=== PATIENT | female | born 1960 | race Caucasian/White ===

== ENCOUNTER → 2017-03-08 | Outpatient (CLI) | payer MEDICARE | END | disposition home or self-care (01) | LOC: LABWHC1 10:50 | PROVIDERS: ATTEND Internal Medicine | DX: Z53.9 Procedure and treatment not carried out, unspecified reason (principal) ==

== ENCOUNTER → 2017-03-20 | Outpatient (CLI) | payer MEDICARE ==
[2017-03-20 12:14] LABS: Basophils % (A) 1 %; CHCM 31.5; Eosinophils # (A) 0.1 k/uL (0-0.7); Eosinophils % (A) 2 %; HCT 45.9 % (34.0-46.0); HGB 14.2 gm/dL (11.4-16.0); Luc # (Auto) 0.09; Luc % (Auto) 1; Lymphocytes # (A) 1.7 k/uL (1.0-4.8); Lymphocytes % (A) 27 %; MCH 28.6 pg (25.0-35.0); MCHC 30.9 g/dL (31.0-37.0); MCV 92.6 fL (80.0-100.0); Mean Platelet Volume 6.3; Monocytes # (A) 0.4 k/uL (0-1.0); Monocytes % (A) 6 %; Neutrophils % (A) 63 %; RBC 4.95 m/uL (3.80-5.40); RDW 13.4 % (11.5-15.5); WBC 6.4 k/uL (3.8-10.6); WBC (Perox) 6.43
[2017-03-20 12:24] LABS: Appearance,Urine Clear (Clear); Bilirubin,Urine Negative (Negative); Glucose,Urine (UA) Negative (Negative); Ketones,Urine Negative (Negative); Leukocyte Esterase,Urine Negative (Negative); Nitrite,Urine Negative (Negative); Particle Count 913; Protein,Urine Negative (Negative); RBC,Urine 19 /hpf (0-5); Specific Gravity,Urine 1.013 (1.001-1.035); Squamous Epithelial Cell,Urine <1 /hpf (0-4); UA Billing (MACRO vs. MICRO) MICRO; Urobilinogen,Urine <2.0 mg/dL (<2.0); WBC,Urine 1 /hpf (0-5)
[2017-03-20 12:41] LABS: ALT 14 U/L (9-52); AST 18 U/L (14-36); Alkaline Phosphatase 85 U/L (38-126); Anion Gap 10 mmol/L; Blood Urea Nitrogen 16 mg/dL (7-17); Calcium 9.5 mg/dL (8.4-10.2); Carbon Dioxide 23 mmol/L (22-30); Chloride 108 mmol/L (98-107); Cholesterol 205 mg/dL (<200); Glucose 96 mg/dL (74-99); HDL Cholesterol 88 mg/dL (40-60); Magnesium 1.8 mg/dL (1.6-2.3); Non-African American GFR(MDRD) >60 (>60 ml/min/1.73 sqM); Potassium 4.3 mmol/L (3.5-5.1); Sodium 141 mmol/L (137-145); Total Bilirubin 0.4 mg/dL (0.2-1.3); Total Protein 7.4 g/dL (6.3-8.2)
[2017-03-20 14:14] LABS: Hemoglobin A1C 5.5 % (4.2-6.1)
--- NOTE | 2017-03-20 14:46 | XR ---
Left femur and bilateral hips HISTORY: Pain 2 views of the left femur correlated to bilateral hips with 2 views of each hip from same date Osteoarthritic changes noted within the left knee. Marginal spurring and joint space loss also noted within the bilateral hips. Bone mineralization is maintained. Possible old avulsion injury seen at th e lesser trochanter of the left is well-corticated and not felt likely to be acute. IMPRESSION: Osteoarthritis.
--- NOTE | 2017-03-20 14:47 | XR ---
Sacroiliac joints HISTORY: Bilateral pain 2 views of each sacroiliac joints submitted. There is no ankylosis, bone erosion, or significant sclerosis. Osteophytic change noted incidentally within the hips. Degenerative disc change at the lower lumbar spine. Indeterminate calcifications wit hin the pelvis. IMPRESSION: Osteoarthritis bilateral hips, degenerative disc disease.
== END | disposition home or self-care (01) ==
LOC: LABWHC1 11:08
PROVIDERS: ATTEND Internal Medicine
DX: M16.0 Bilateral primary osteoarthritis of hip (principal); E53.8 Deficiency of other specified B group vitamins; D64.9 Anemia, unspecified; E11.9 Type 2 diabetes mellitus without complications; N18.3 Chronic kidney disease, stage 3 (moderate); E05.90 Thyrotoxicosis, unspecified without thyrotoxic crisis or storm; E78.5 Hyperlipidemia, unspecified; N20.0 Calculus of kidney; N39.0 Urinary tract infection, site not specified
CPT/HCPCS: 36415; 72202; 73521; 80053; 80061; 80074; 81001; 82306; 82607; 82746; 83036; 83735; 83970; 84443; 85025

== ENCOUNTER → 2017-06-09 | Outpatient (CLI) | payer MEDICARE ==
[2017-06-09 13:48] LABS: Appearance,Urine Clear (Clear); Bilirubin,Urine Negative (Negative); Blood,Urine Small (Negative); Color,Urine Yellow; Glucose,Urine (UA) Negative (Negative); Ketones,Urine Trace (Negative); Leukocyte Esterase,Urine Negative (Negative); Mucus,Urine Occasional /hpf; Nitrite,Urine Negative (Negative); Protein,Urine Negative (Negative); RBC,Urine 6 /hpf (0-5); Specific Gravity,Urine 1.015 (1.001-1.035); Urobilinogen,Urine <2.0 mg/dL (<2.0); WBC,Urine 2 /hpf (0-5)
--- NOTE | 2017-06-10 13:58 | XR ---
EXAMINATION TYPE: XR KUB DATE OF EXAM: 06/09/2017 1:06 PM CLINICAL HISTORY: Right flank pain with history of nephrolithiasis TECHNIQUE: Single supine KUB image of the abdomen is obtained. COMPARISON: None. FINDINGS: Punctate 1 to 2 mm right upper pole and right lower pole renal calculus is seen as well as multitude of left renal calculi with the largest measuring 8 mm on the left and at least 7 other left renal calculi. Dystrophic calcification within the pelvis likely relates to degenerative uterine fib roid. Moderate multilevel degenerative changes of the visualized thoracolumbar and lumbosacral spine are seen as well as of the femoral acetabular joints. IMPRESSION: Bilateral nephrolithiasis, left greater than right.
== END | disposition home or self-care (01) ==
LOC: RADXRMAIN 11:16
PROVIDERS: ATTEND Internal Medicine
DX: N20.0 Calculus of kidney (principal)
CPT/HCPCS: 74018; 81001

== ENCOUNTER → 2017-07-03 | Outpatient (CLI) | payer MEDICARE ==
--- NOTE | 2017-07-03 15:10 | CT ---
EXAMINATION TYPE: CT abdomen pelvis wo con DATE OF EXAM: 07/03/2017 COMPARISON: NONE HISTORY: Calculus of kidney CT DLP: 270.40 mGycm Automated exposure control for dose reduction was used. TECHNIQUE: Helical acquisition of images was performed from the lung bases through the pelvis. FINDINGS: LUNG BASES: No significant abnormality is appreciated. LIVER/GB: Unremarkable unenhanced morphology. No evidence of cholelithiasis. PANCREAS: No ductal dilatation. SPLEEN: No splenomegaly. ADRENALS: No thickening or nodularity. KIDNEYS: There are at least 11 left-sided renal calculi with the largest in the lower pole measuring 6 mm. These are all nonobstructive with no evidence of left-sided hydronephrosis. Within the right ki dney there are 3 renal calculi with the largest measuring 2 mm in the lower pole. These are also nono bstructed with no evidence of hydronephrosis. FREE AIR: No free air is visualized RETROPERITONEAL ADENOPATHY: Evaluation is somewhat limited given lack of intravenous contrast, howev er no greater than 1 cm short axis lymph nodes are seen within the abdomen or pelvis. REPRODUCTIVE ORGANS: No significant abnormality is seen URINARY BLADDER: Urinary bladder is incompletely evaluated as it is incompletely distended and nonco ntrast filled. No gross abnormality is identified. PELVIC ADENOPATHY: None visualized. OSSEOUS STRUCTURES: Moderate multilevel degenerative changes of the visualized thoracal lumbar spine are noted. There is a grade 1 retrolisthesis of L1 on L2 and grade 1 anterolisthesis of L4 on L5. Th ere is a mild S-shaped scoliotic curvature of the visualized thoracal lumbar spine and moderate bilat eral femoral acetabular arthropathy. BOWEL: Moderate amount retained colonic stool without evidence of bowel obstruction. OTHER: Moderate calcific atheromatous changes are seen of the abdominal aorta and its branches. IMPRESSION: NUMEROUS BILATERAL NONOBSTRUCTING RENAL CALCULI (AT LEAST 11 ON THE LEFT AND 3 ON THE RIGHT) MEASURIN G UP TO 6 MM ON THE LEFT AND 2 MM ON THE RIGHT. NO URETERAL CALCULI OR URINARY BLADDER CALCULI ARE ID ENTIFIED.
== END | disposition home or self-care (01) ==
LOC: RADCTMAIN 14:38
PROVIDERS: ATTEND Urology
DX: N20.0 Calculus of kidney (principal)
CPT/HCPCS: 74176

== ENCOUNTER → 2017-10-06 | Outpatient (CLI) | payer MEDICARE ==
[2017-10-06 17:26] LABS: HIV AB P24 Non-Reactive (Non-Reactive); HIV P24 AG Non-Reactive (Non-Reactive)
== END | disposition home or self-care (01) ==
LOC: LABWHC1 09:17
PROVIDERS: ATTEND Ophthalmology
DX: H44.009 Unspecified purulent endophthalmitis, unspecified eye (principal)
CPT/HCPCS: 36415; 86780; 87390

== ENCOUNTER → 2017-10-15 | Outpatient (CLI) | payer MEDICARE ==
[2017-10-15 14:14] LABS: Albumin 4.6 g/dL (3.5-5.0); Calcium 10.3 mg/dL (8.4-10.2); Magnesium 1.8 mg/dL (1.6-2.3); Phosphorus 4.7 mg/dL (2.5-4.5); Potassium 5.2 mmol/L (3.5-5.1); Total Bilirubin 0.3 mg/dL (0.2-1.3); Total Protein 7.6 g/dL (6.3-8.2); Uric Acid 5.5 mg/dL (3.7-7.4)
[2017-10-15 18:48] LABS: Vitamin D 25 Hydroxy 15.7 ng/mL (30.0-100.0)
[2017-10-15 19:00] LABS: Parathyroid Hormone Intact 32.5 pg/mL (14.0-72.0)
== END | disposition home or self-care (01) ==
LOC: LABWHC1 13:27
PROVIDERS: ATTEND Internal Medicine
DX: E21.3 Hyperparathyroidism, unspecified (principal); N20.0 Calculus of kidney; E87.8 Other disorders of electrolyte and fluid balance, not elsewhere classified; N18.3 Chronic kidney disease, stage 3 (moderate); E55.9 Vitamin D deficiency, unspecified
CPT/HCPCS: 36415; 80053; 82306; 83735; 83970; 84100; 84550

== ENCOUNTER → 2017-10-24 | Outpatient (CLI) | payer MEDICARE ==
[2017-10-24 12:34] LABS: Ionized Calcium 5.6 mg/dL (4.5-5.3)
[2017-10-24 12:40] LABS: Anion Gap 12 mmol/L; Blood Urea Nitrogen 27 mg/dL (7-17); Calcium 9.9 mg/dL (8.4-10.2); Carbon Dioxide 23 mmol/L (22-30); Chloride 106 mmol/L (98-107); Glucose 94 mg/dL (74-99); Magnesium 1.9 mg/dL (1.6-2.3); Phosphorus 3.7 mg/dL (2.5-4.5); Potassium 4.6 mmol/L (3.5-5.1); Sodium 141 mmol/L (137-145)
== END | disposition home or self-care (01) ==
LOC: LABWHC1 11:39
PROVIDERS: ATTEND Internal Medicine
DX: E87.8 Other disorders of electrolyte and fluid balance, not elsewhere classified (principal); E83.51 Hypocalcemia; E87.5 Hyperkalemia
CPT/HCPCS: 36415; 80048; 82330; 83735; 84100

== ENCOUNTER → 2019-05-02 | Outpatient (CLI) | payer MEDICARE ==
--- NOTE | 2019-05-02 09:37 | US ---
EXAMINATION TYPE: US duplex aorta DATE OF EXAM: 05/02/2019 COMPARISON: CT CLINICAL HISTORY: I71.4; pulsing aorta; Patient HT 5'4, WT 110lbs; calcifications noted on prior CT EXAM MEASUREMENTS: Abdominal Aorta: Proximal: 2.0cm Transverse Mid: 2.0cm A/P Distal: 1.7cm Transverse Bifurcation: 1.25cm Right JOSE M Transverse; 1.06cm Left JOSE M Transverse Intimal wall changes are noted mid and distal aorta. IMPRESSION: No sonographic evidence of abdominal aortic aneurysm. Atherosclerosis noted.
[2019-05-02 09:42] LABS: Basophils # (A) 0.1 k/uL (0-0.2); Basophils % (A) 1 %; Eosinophils # (A) 0.1 k/uL (0-0.7); Eosinophils % (A) 1 %; HCT 42.3 % (34.0-46.0); HGB 13.2 gm/dL (11.4-16.0); Lymphocytes # (A) 1.7 k/uL (1.0-4.8); Lymphocytes % (A) 17 %; MCH 27.7 pg (25.0-35.0); MCHC 31.1 g/dL (31.0-37.0); MCV 88.9 fL (80.0-100.0); Monocytes # (A) 0.4 k/uL (0-1.0); Monocytes % (A) 5 %; Neutrophils # (A) 7.4 k/uL (1.3-7.7); Neutrophils % (A) 75 %; Platelet Count 535 k/uL (150-450); RBC 4.76 m/uL (3.80-5.40); RDW 14.4 % (11.5-15.5); WBC 9.8 k/uL (3.8-10.6)
[2019-05-02 09:56] LABS: ALT <6 U/L (9-52); AST 17 U/L (14-36); African American GFR (CKD) >90 (>60 ml/min/1.73 sqM); Albumin 4.2 g/dL (3.5-5.0); Alkaline Phosphatase 88 U/L (38-126); Anion Gap 6 mmol/L; Blood Urea Nitrogen 17 mg/dL (7-17); Calcium 9.9 mg/dL (8.4-10.2); Carbon Dioxide 30 mmol/L (22-30); Chloride 106 mmol/L (98-107); Cholesterol 197 mg/dL (<200); Creatine Kinase 24 U/L (30-135); Glucose 113 mg/dL (74-99); HDL Cholesterol 71 mg/dL (40-60); LDL Cholesterol,Calculated 101 mg/dL (0-99); Non-African American GFR(CKD) 88 (>60 ml/min/1.73 sqM); Phosphorus 3.6 mg/dL (2.5-4.5); Potassium 4.1 mmol/L (3.5-5.1); Sodium 142 mmol/L (137-145); Total Bilirubin 0.5 mg/dL (0.2-1.3); Total Protein 7.7 g/dL (6.3-8.2); Triglycerides 126 mg/dL (<150); Uric Acid 4.4 mg/dL (3.7-7.4)
[2019-05-02 10:08] LABS: T4, Free (Free Thyroxine) 1.21 ng/dL (0.78-2.19)
--- NOTE | 2019-05-02 10:32 | XR ---
EXAMINATION TYPE: XR shoulder complete RT DATE OF EXAM: 05/02/2019 COMPARISON: NONE HISTORY: Pain TECHNIQUE: Three views are submitted. FINDINGS: The osseous structures are intact. There is no acute fracture or dislocation. The AC joint is maint ained. There is hypertrophic change of the acromion. Chronic appearing deformity of the right fourth rib. IMPRESSION: 1. Small spur extending from the acromion can be seen with chronic rotator cuff disease correlate cli nically.
--- NOTE | 2019-05-02 10:37 | XR ---
EXAMINATION TYPE: XR chest 2V DATE OF EXAM: 05/02/2019 COMPARISON: NONE TECHNIQUE: PA and lateral views submitted. HISTORY: Pain FINDINGS: The lungs are clear and there is no pneumothorax, pleural effusion, or focal pneumonia. Postsurgica l change overlying the cervical spine. Arthropathy of the shoulders greater on the right. Hypertrophi c and degenerative changes spine with scoliotic curvature. Hyperinflation suggests COPD. IMPRESSION: 1. No acute process. Hyperinflation suggests COPD.
[2019-05-02 10:44] LABS: Amorphous Sediment,Urine Moderate /hpf; Appearance,Urine Turbid (Clear); Bacteria,Urine Occasional /hpf; Bilirubin,Urine Negative (Negative); Blood,Urine Negative (Negative); C Reactive Protein <5.0 mg/L (<10.0); Color,Urine Yellow; Glucose,Urine (UA) Negative (Negative); Hyaline Casts,Urine 4 /lpf (0-2); Ketones,Urine Negative (Negative); Leukocyte Esterase,Urine Moderate (Negative); Mucus,Urine Rare /hpf; Nitrite,Urine Positive (Negative); PH, Urine 6.5 (5.0-8.0); Protein,Urine Negative (Negative); RBC,Urine 6 /hpf (0-5); Specific Gravity,Urine 1.013 (1.001-1.035); Squamous Epithelial Cell,Urine <1 /hpf (0-4); Urobilinogen,Urine <2.0 mg/dL (<2.0); WBC,Urine 20 /hpf (0-5)
[2019-05-02 11:28] LABS: Erythrocyte Sedimentation Rate 28 mm/hr (0-20)
--- NOTE | 2019-05-02 11:31 | XR ---
EXAMINATION TYPE: XR Hip Complete LT DATE OF EXAM: 05/02/2019 COMPARISON: NONE HISTORY: Pain TECHNIQUE: 2 views submitted FINDINGS: There is no evidence of erosive change or acute fracture. There is arthropathy of the hip joint with hypertrophic change of the acetabulum. Calcification the pelvis noted. Spurring along the femoral hea d noted. IMPRESSION: 1. Moderate to severe arthropathy of the hip. Correlate for osteoarthritis.
[2019-05-02 19:39] LABS: Hemoglobin A1C 5.8 % (4.0-6.0)
== END | disposition home or self-care (01) ==
LOC: RADUSWWP 08:43
PROVIDERS: ATTEND Internal Medicine
DX: I70.0 Atherosclerosis of aorta (principal); M75.81 Other shoulder lesions, right shoulder; J98.8 Other specified respiratory disorders; M12.852 Other specific arthropathies, not elsewhere classified, left hip; I71.4 Abdominal aortic aneurysm, without rupture; E11.22 Type 2 diabetes mellitus with diabetic chronic kidney disease; N18.3 Chronic kidney disease, stage 3 (moderate); D63.1 Anemia in chronic kidney disease; E87.8 Other disorders of electrolyte and fluid balance, not elsewhere classified; E78.5 Hyperlipidemia, unspecified; E21.3 Hyperparathyroidism, unspecified; E05.90 Thyrotoxicosis, unspecified without thyrotoxic crisis or storm; N20.0 Calculus of kidney; M81.0 Age-related osteoporosis without current pathological fracture; J06.9 Acute upper respiratory infection, unspecified
CPT/HCPCS: 36415; 71046; 73502; 80053; 80061; 81001; 82550; 83036; 83735; 83970; 84100; 84439; 84443; 84550; 85025; 85652; 86140; 93979

== ENCOUNTER 2022-09-08 18:54 | Emergency (ER) | payer MEDICARE ==
[2022-09-08 19:04] VITALS: TEMP 98.2
--- NOTE | 2022-09-08 20:03 | ED ---
SOB HPI - General Chief Complaint: Shortness of Breath Stated Complaint: CANT BREATHE Time Seen by Provider: 09/08/22 19:00 Source: patient Mode of arrival: wheelchair Limitations: no limitations - History of Present Illness Initial Comments: 62-year-old female past medical history of Parkinson's who presents to the emergency room reporting shortness of breath, chest pressure and palpitations. She also reports to worsening tremors and speech difficulties. Symptoms all started today. States she is under considerable amount of stress while trying t o take care of her elderly mother. She does have some speech deficits due to her Parkinson's however states that today it seems harder to find her words. She denies fevers, chills or cough. No nausea or vomiting. No sick contacts with similar symptoms. No history of coronary disease. Does admit to history of pots. It still mild headache. No visual changes. No recent trauma. No abdominal pain. No changes in her bowel or bladder habits. No other alleviating, precipitating or modifying factors - Related Data Home Medications Medication Instructions Recorded Confirmed Sinemet (Uknown Strength) 1 dose PO DIRECTED 09/08/22 09/08/22 Allergies Allergy/AdvReac Type Severity Reaction Status Date / Time No Known Allergies Allergy Verified 09/08/22 21:43 Review of Systems ROS Statement: Those systems with pertinent positive or pertinent negative responses have been documented in the HPI. ROS Other: All systems not noted in ROS Statement are negative. Past Medical History Additional Past Medical History / Comment(s): parkinsons, MARTI History of Any Multi-Drug Resistant Organisms: None Reported Past Surgical History: Appendectomy Additional Past Surgical History / Comment(s): cervical ,lumbar spine, crainotomy Past Psychological History: No Psychological Hx Reported Smoking Status: Never smoker Past Alcohol Use History: None Reported Past Drug Use History: None Reported General Exam Limitations: no limitations General appearance: alert, in no apparent distress Head exam: Present: atraumatic, normocephalic, normal inspection Eye exam: Present: normal appearance, PERRL, EOMI. Absent: scleral icterus, conjunctival injection, periorbital swelling ENT exam: Present: normal exam, mucous membranes moist Neck exam: Present: normal inspection. Absent: tenderness, meningismus, lymphadenopathy Respiratory exam: Present: normal lung sounds bilaterally. Absent: respiratory distress, wheezes, rales, rhonchi, stridor Cardiovascular Exam: Present: regular rate, normal rhythm, normal heart sounds. Absent: systolic murmur, diastolic murmur, rubs, gallop, clicks GI/Abdominal exam: Present: soft, normal bowel sounds. Absent: distended, tenderness, guarding, rebound, rigid Extremities exam: Present: normal inspection, full ROM, normal capillary refill. Absent: tenderness, pedal edema, joint swelling, calf tenderness Back exam: Present: normal inspection Neurological exam: Present: alert, oriented X3, CN II-XII intact Psychiatric exam: Present: normal affect, normal mood Skin exam: Present: warm, dry, intact, normal color. Absent: rash Course Vital Signs 09/08/22 09/08/22 18:59 21:13 Temperature 98.2 F Pulse Rate 114 H 100 Respiratory 24 18 Rate Blood Pressure 147/78 121/81 O2 Sat by Pulse 99 100 Oximetry Medical Decision Making - Medical Decision Making Was pt. sent in by a medical professional or institution (, PA, ELEMENTARY ASSISTANT TEACHER, urgent care, hospital, or alf...) When possible be specific @ -No Did you speak to anyone other than the patient for history (EMS, parent, family, police, friend...)? What history was obtained from this source @ -No Did you review nursing and triage notes (agree or disagree)? Why? @ -I reviewed and agree with nursing and triage notes Were old charts reviewed (outside hosp., previous admission, EMS record, old EKG, old radiological studies, urgent care reports/EKG's, alf records)? Report findings @ -No old charts were reviewed Differential Diagnosis (chest pain, altered mental status, abdominal pain women, abdominal pain men, vaginal bleeding, weakness, fever, dyspnea, syncope, headache, dizziness, GI bleed, back pain, seizure, CVA, palpatations, mental health, musculoskeletal)? @ -acs, pleurisy, chest wall pain, nstemi, pe, copd, anxiety EKG interpreted by me (3pts min.). @ -yes X-rays interpreted by me (1pt min.). @ -yes CT interpreted by me (1pt min.). @ yes U/S interpreted by me (1pt. min.). @ -None done What testing was considered but not performed or refused? (CT, X-rays, U/S, labs)? Why? @ -recommended admission but patient refused What meds were considered but not given or refused? Why? @ -None Did you discuss the management of the patient with other professionals (professionals i.e. , PA, ELEMENTARY ASSISTANT TEACHER, lab, RT, psych nurse, director social service, concrete paving machine operator, teacher, correction officer penitentiary, family preservation caseworker)? Give summary @ -No Was smoking cessation discussed for >3mins.? @ -No Was critical care preformed (if so, how long)? @ -No Were there social determinants of health that impacted care today? How? (Homelessness, low income, unemployed, alcoholism, drug addiction, transportation, low edu. Level, literacy, decrease access to med. care, halfway, rehab)? @ -No Was there de-escalation of care discussed even if they declined (Discuss DNR or withdrawal of care, Hospice)? DNR status @ -No What co-morbidities impacted this encounter? (DM, HTN, Smoking, COPD, CAD, Cancer, CVA, ARF, Chemo, Hep., AIDS, mental health diagnosis, sleep apnea, mo rbid obesity)? @ -parkinsons, marti Was patient admitted / discharged? Hospital course, mention meds given and route, prescriptions, significant lab abnormalities, going to OR and other pertinent info. @ -Upon arrival patient was placed into trauma 2. Thorough history and physical exam was performed. IV access is established and laboratory studies are conducted. D-dimer is negative. Troponin negative. Chest x-ray demonstrates no acute cardiopulmonary process. CT of the brain is low CT angiography is performed as patient does disclose that she has a history of aneurysm with repair. CT brain demonstrates no acute intracranial process. Results are discussed with the patient. Recommended admission however patient is adamant that she needs to go home at this time to take care of her mother. Did discuss risks of waiting for which the patient understood. Patient states that she will call her neurologist in the morning to make an appointment. She'll return for any new or worsening symptoms. Patient is discharged with a guarded prognosis Undiagnosed new problem with uncertain prognosis? @ -yes Drug Therapy requiring intensive monitoring for toxicity (Heparin, Nitro, Insulin, Cardizem)? @ -No Were any procedures done? @ -No Diagnosis/symptom? @ -acute resp insuff, acute aphasia Acute, or Chronic, or Acute on Chronic? @ -acute Uncomplicated (without systemic symptoms) or Complicated (systemic symptoms)? @ -complicated Side effects of treatment? @ -No Exacerbation, Progression, or Severe Exacerbation? @ -No Poses a threat to life or bodily function? How? (Chest pain, USA, MD, pneumonia, PE, COPD, DKA, ARF, appy, cholecystitis, CVA, Diverticulitis, Homicidal, Suicidal, threat to staff... and all critical care pts) @ -No - Lab Data Result diagrams: 09/08/22 20:04 09/08/22 20:04 Lab Results 09/08/22 09/08/22 09/08/22 Range/Units 20:04 20:04 20:04 WBC 7.4 (3.8-10.6) k/uL RBC 5.23 (3.80-5.40) m/uL Hgb 15.6 (11.4-16.0) gm/dL Hct 46.8 H (34.0-46.0) % MCV 89.4 (80.0-100.0) fL MCH 29.9 (25.0-35.0) pg MCHC 33.4 (31.0-37.0) g/dL RDW 12.3 (11.5-15.5) % Plt Count 330 (150-450) k/uL MPV 7.2 Neutrophils % 77 % Lymphocytes % 16 % Monocytes % 6 % Eosinophils % 1 % Basophils % 0 % Neutrophils # 5.7 (1.3-7.7) k/uL Lymphocytes # 1.1 (1.0-4.8) k/uL Monocytes # 0.4 (0-1.0) k/uL Eosinophils # 0.1 (0-0.7) k/uL Basophils # 0.0 (0-0.2) k/uL PT 9.9 (9.0-12.0) sec INR 0.9 (<1.2) APTT 23.6 (22.0-30.0) sec D-Dimer (<0.60) mg/L FEU Sodium 136 L (137-145) mmol/L Potassium 4.5 (3.5-5.1) mmol/L Chloride 102 (98-107) mmol/L Carbon Dioxide 24 (22-30) mmol/L Anion Gap 10 mmol/L BUN 23 H (7-17) mg/dL Creatinine 0.86 (0.52-1.04) mg/dL Est GFR (CKD-EPI)AfAm 84 (>60 ml/min/1.73 sqM) Est GFR (CKD-EPI)NonAf 73 (>60 ml/min/1.73 sqM) Glucose 101 H (74-99) mg/dL Plasma Lactic Acid Binh (0.7-2.0) mmol/L Calcium 10.8 H (8.4-10.2) mg/dL Magnesium 2.1 (1.6-2.3) mg/dL Total Bilirubin 0.8 (0.2-1.3) mg/dL AST 21 (14-36) U/L ALT 8 (4-34) U/L Alkaline Phosphatase 102 (38-126) U/L Troponin I (0.000-0.034) ng/mL NT-Pro-B Natriuret Pep pg/mL Total Protein 9.1 H (6.3-8.2) g/dL Albumin 5.1 H (3.5-5.0) g/dL TSH (0.465-4.680) mIU/L 09/08/22 09/08/22 09/08/22 Range/Units 20:04 20:04 20:04 WBC (3.8-10.6) k/uL RBC (3.80-5.40) m/uL Hgb (11.4-16.0) gm/dL Hct (34.0-46.0) % MCV (80.0-100.0) fL MCH (25.0-35.0) pg MCHC (31.0-37.0) g/dL RDW (11.5-15.5) % Plt Count (150-450) k/uL MPV Neutrophils % % Lymphocytes % % Monocytes % % Eosinophils % % Basophils % % Neutrophils # (1.3-7.7) k/uL Lymphocytes # (1.0-4.8) k/uL Monocytes # (0-1.0) k/uL Eosinophils # (0-0.7) k/uL Basophils # (0-0.2) k/uL PT (9.0-12.0) sec INR (<1.2) APTT (22.0-30.0) sec D-Dimer (<0.60) mg/L FEU Sodium (137-145) mmol/L Potassium (3.5-5.1) mmol/L Chloride (98-107) mmol/L Carbon Dioxide (22-30) mmol/L Anion Gap mmol/L BUN (7-17) mg/dL Creatinine (0.52-1.04) mg/dL Est GFR (CKD-EPI)AfAm (>60 ml/min/1.73 sqM) Est GFR (CKD-EPI)NonAf (>60 ml/min/1.73 sqM) Glucose (74-99) mg/dL Plasma Lactic Acid Binh 1.4 (0.7-2.0) mmol/L Calcium (8.4-10.2) mg/dL Magnesium (1.6-2.3) mg/dL Total Bilirubin (0.2-1.3) mg/dL AST (14-36) U/L ALT (4-34) U/L Alkaline Phosphatase (38-126) U/L Troponin I <0.012 (0.000-0.034) ng/mL NT-Pro-B Natriuret Pep 18 pg/mL Total Protein (6.3-8.2) g/dL Albumin (3.5-5.0) g/dL TSH (0.465-4.680) mIU/L 09/08/22 09/08/22 Range/Units 21:25 21:25 WBC (3.8-10.6) k/uL RBC (3.80-5.40) m/uL Hgb (11.4-16.0) gm/dL Hct (34.0-46.0) % MCV (80.0-100.0) fL MCH (25.0-35.0) pg MCHC (31.0-37.0) g/dL RDW (11.5-15.5) % Plt Count (150-450) k/uL MPV Neutrophils % % Lymphocytes % % Monocytes % % Eosinophils % % Basophils % % Neutrophils # (1.3-7.7) k/uL Lymphocytes # (1.0-4.8) k/uL Monocytes # (0-1.0) k/uL Eosinophils # (0-0.7) k/uL Basophils # (0-0.2) k/uL PT (9.0-12.0) sec INR (<1.2) APTT (22.0-30.0) sec D-Dimer 0.25 (<0.60) mg/L FEU Sodium (137-145) mmol/L Potassium (3.5-5.1) mmol/L Chloride (98-107) mmol/L Carbon Dioxide (22-30) mmol/L Anion Gap mmol/L BUN (7-17) mg/dL Creatinine (0.52-1.04) mg/dL Est GFR (CKD-EPI)AfAm (>60 ml/min/1.73 sqM) Est GFR (CKD-EPI)NonAf (>60 ml/min/1.73 sqM) Glucose (74-99) mg/dL Plasma Lactic Acid Binh (0.7-2.0) mmol/L Calcium (8.4-10.2) mg/dL Magnesium (1.6-2.3) mg/dL Total Bilirubin (0.2-1.3) mg/dL AST (14-36) U/L ALT (4-34) U/L Alkaline Phosphatase (38-126) U/L Troponin I (0.000-0.034) ng/mL NT-Pro-B Natriuret Pep pg/mL Total Protein (6.3-8.2) g/dL Albumin (3.5-5.0) g/dL TSH 0.710 (0.465-4.680) mIU/L - EKG Data EKG Comments: EKG demonstrates sinus tachycardia with a rate of 108. UT interval 128. QRS 77. QTC is 365. No acute ST segment elevations or depressions Disposition Clinical Impression: Acute respiratory insufficiency, Aphasia Disposition: HOME SELF-CARE Condition: Stable Instructions (If sedation given, give patient instructions): Shortness of Breath (ED) Additional Instructions: Recommended admission for further workup. Please follow-up with her primary care doctor in 2-4 days for further management of your symptoms return should she be agreeable to stay. Is patient prescribed a controlled substance at d/c from ED?: No Referrals: Inocente Macedo MD [Primary Care Provider] - 1-2 days Sandra Gibbs MD [REFERRING] - 1-2 days Time of Disposition: 23:30
[2022-09-08 20:40] LABS: Basophils % (A) 0 %; Eosinophils # (A) 0.1 k/uL (0-0.7); Eosinophils % (A) 1 %; HCT 46.8 % (34.0-46.0); HGB 15.6 gm/dL (11.4-16.0); Lymphocytes # (A) 1.1 k/uL (1.0-4.8); Lymphocytes % (A) 16 %; MCH 29.9 pg (25.0-35.0); MCHC 33.4 g/dL (31.0-37.0); MCV 89.4 fL (80.0-100.0); Mean Platelet Volume 7.2; Monocytes # (A) 0.4 k/uL (0-1.0); Monocytes % (A) 6 %; Neutrophils # (A) 5.7 k/uL (1.3-7.7); Neutrophils % (A) 77 %; Platelet Count 330 k/uL (150-450); RBC 5.23 m/uL (3.80-5.40); RDW 12.3 % (11.5-15.5); WBC 7.4 k/uL (3.8-10.6)
[2022-09-08 20:51] LABS: Albumin 5.1 g/dL (3.5-5.0); Calcium 10.8 mg/dL (8.4-10.2); Magnesium 2.1 mg/dL (1.6-2.3); Potassium 4.5 mmol/L (3.5-5.1); Total Bilirubin 0.8 mg/dL (0.2-1.3); Total Protein 9.1 g/dL (6.3-8.2)
[2022-09-08 20:55] LABS: INR 0.9 (<1.2); Partial Thromboplastin Time 23.6 sec (22.0-30.0); Prothrombin Time 9.9 sec (9.0-12.0)
[2022-09-08] MEDS ORDERED: CARBIDOPA-LEVODOPA ER 50-200MG 1 EACH TABLET.ER PO STA (20:58)
--- NOTE | 2022-09-08 20:58 | XR ---
EXAMINATION TYPE: XR chest 2V DATE OF EXAM: 09/08/2022 8:17 PM COMPARISON: Chest radiographs from 05/02/2019. TECHNIQUE: XR chest 2V Frontal and lateral views of the chest. CLINICAL INDICATION:Female, 62 years old with history of difficulty breathing; FINDINGS: Lungs/Pleura: There is no evidence of pleural effusion, focal consolidation, or pneumothorax. Pulmonary vascularity: Unremarkable. Heart/mediastinum: Cardiomediastinal silhouette is unremarkable. Musculoskeletal: No acute osseous pathology. There is fixation hardware in the lower cervical spine. IMPRESSION: No acute cardiopulmonary disease/process.
[2022-09-08 21:16] VITALS: BP 121/81; PULSE 100; RESP 18
--- NOTE | 2022-09-08 22:58 | CT ---
EXAMINATION TYPE: CT brain wo con CT DLP: Combined DLP of 1482.5 mGycm, Automated exposure control for dose reduction was used. DATE OF EXAM: 09/08/2022 10:47 PM COMPARISON: MRA brain 10/04/2009. CLINICAL INDICATION:Female, 62 years old with history of aphasia, Parkinsons. Increased tremors. TECHNIQUE: Brain: Axial CT images of the brain were obtained with coronal and sagittal reformats created and rev iewed. Contrast used: None. Oral contrast used: None. FINDINGS: Brain: Extra-axial spaces: No abnormal extra-axial fluid collections. Ventricular system: Within normal limits Cerebral parenchyma: No acute intraparenchymal hemorrhage or mass effect. The pacheco-white junction is well differentiated. Right middle cranial fossa surgical clip. Cerebellum: Unremarkable. Mass effect: No evidence of midline shift. Intracranial vasculature: unremarkable Soft tissues: Normal. Calvarium/osseous structures: No depressed skull fracture. Post surgical changes in the right calvari um. Paranasal sinuses and mastoid air cells: Mild scattered paranasal sinus disease. Visualized orbits: Orbital contents are intact. IMPRESSION: No acute intracranial process.
--- NOTE | 2022-09-08 23:07 | CT ---
EXAMINATION TYPE: CT angio head neck CT DLP: 1482.5 mGycm, Automated exposure control for dose reduction was used. DATE OF EXAM: 09/08/2022 10:47 PM COMPARISON: CT brain same day. CLINICAL INDICATION:Female, 62 years old with history of aphasia; PHH, Parkinson's. Increased tremors . TECHNIQUE: Axially acquired helical CT angiogram of the head and neck was obtained with contrast. Axi al images are supplemented with 3D reconstructions [facility] criteria used. Contrast used:65cc mL of Isovue 370 with IV Contrast, Oral contrast used: None. FINDINGS: CTA HEAD: No evidence of acute intracranial hemorrhage, mass effect, or midline shift. The ventricles, sulci, a nd cisterns are unremarkable. The visualized portions of the internal carotid arteries, middle cerebral arteries, anterior cerebral arteries, and posterior cerebral arteries are patent. origins of the posterior cerebral arteri es bilaterally. The basilar and vertebral arteries are patent. Diminutive appearance of the intracranial vertebral sy stem and vertebral arteries within the neck. Right middle cranial fossa surgical clip. Postsurgical c hanges to the calvarium. CTA NECK: Right Carotid System: The common carotid artery and external carotid artery are patent. The carotid bifurcation demonstrate s calcified and noncalcified plaque with less than 25% stenosis, no evidence of hemodynamically signi ficant stenosis. The remaining portions of the internal carotid artery demonstrate normal size withou t significant narrowing. Left Carotid System: The common carotid artery and external carotid artery are patent. The carotid bifurcation demonstrate s calcified and noncalcified plaque with less than 25% stenosis, no evidence of hemodynamically signi ficant stenosis. The remaining portions of the internal carotid artery demonstrate normal size withou t significant narrowing. Vertebral arteries are patent but are small in caliber bilaterally. There is a three-vessel aortic ar ch. The origins of the great vessels are patent. No evidence of hemodynamically significant stenosis. Hardware appears intact. Mild centrilobular emphysema changes are seen in the lung apices. Fixation c hanges are seen to the lower cervical spine. IMPRESSION: 1. No evidence of dissection of the cervical internal carotid arteries or vertebral arteries or any e vidence of significant stenosis at the carotid bifurcations. 2. No evidence of intracranial high-grade stenosis or intracranial aneurysm.
== END 2022-09-08 23:50 | disposition home or self-care (01) ==
LOC: EC 18:54
DX: R06.89 Other abnormalities of breathing (principal); R47.01 Aphasia
CPT/HCPCS: 99285 ×2; 36415; 93005; 85379; 83880; 80053; 84443; 83605; 83735; 84484; 85025; 85610; 85730; 71046; 70496; 70450; 70498; Q9967